=== PATIENT | male | born 1980 | race Caucasian/White ===

== ENCOUNTER 2025-03-27 15:27 | Emergency (ER) | payer BC, MEDICAID, SELFPAY ==
[2025-03-27 15:30] VITALS: BP 126/84; PULSE 62; TEMP 36.5; O2SAT 96
--- OUTSIDE RECORDS SUMMARY | 2025-03-27 15:32 | XMS_ITS | Clinical Summary ---
Author Organization [facility] Address [address] [place] [address] Phone Care Team Providers Care Physician Office Specialist Name Role Phone Unavailable Primary Care Provider Unavailabl e Allergies No known active allergies Medications acetaminophen (TYLENOL) 500 mg tablet Take 500 mg by mouth every 6 hours as needed. Active gabapentin (NEURONTIN) 600 mg tablet Take 1 Tablet by mouth 3 times daily. 12/23/2023 Active Active Problems Problem Noted Date Diagnosed Date Painful orthopaedic hardware 02/23/2024 Closed displaced comminuted fracture of shaft of left radius 08/24/2023 Closed fracture of distal end of left radius 06/2023 Encounters Date Type Department Care Team Description 03/05/2025 External Device Data STL ABSTRACTION Provider, Abstract from Last 3 Months Social History Tobacco Use Types Packs/Day Years Used Date Smoking Tobacco: Former Cigarettes Tobacco Cessation:Counseling Given: No Alcohol Use Standard Drinks/Week Comments Not Currently 0 (1 standard drink = 0.6 oz pur e alcohol) Feeling Safe Answer Date Recorded Are you in a relationship wi th someone who hurts you emotionally and/or physically? No 02/23/2024 Food Insecurity Answer Date Recorded Patient needs follow up regardin 11/02/2024 Transportation Needs Answer Date Record ed Patient needs follow up regardin 11/02/2024 Housing Stability Answer Date Recorded Social/Environmental Concerns No concerns Utility Needs Answer Date Recorded Patient needs follow up regardin 11/02/2024 Sex and Gender Information Value Date Recorded Sex Assigned at Not on file Legal Sex Male 1:53 PM JUNIOR DATA ANALYST Gender Identity Not on file Sexual Orientation Not on file Last Filed Vital Signs Vital Sign Reading Time Taken Comments Blood Pressure 124/76 07/03/2024 9:54 AM JUNIOR DATA ANALYST Pulse 76 07/03/2024 9:54 AM JUNIOR DATA ANALYST Temperature 36.4 C (97.5 F) 07/03/2024 9:54 AM JUNIOR DATA ANALYST Respiratory Rate 18 02/23/2024 5:00 PM CDT Oxygen Saturation 96% 07/03/2024 9:54 AM JUNIOR DATA ANALYST Inhaled Oxygen Concentration - - Weight 66.7 kg (147 lb) 07/03/2024 9:54 AM JUNIOR DATA ANALYST Height 165.1 cm (5' 5 ) 07/03/2024 9:54 AM JUNIOR DATA ANALYST Body Mass Index 24.46 07/03/2024 9:54 AM JUNIOR DATA ANALYST Plan of Treatment Health Maintenance Due Date Last Done Comments DTAP/TDAP/TD VACCINES (1 - Tdap) 10/13/1999 HEPATITIS B VACCINES (1 of 3 - 19+ 3-dose series) 10/02 HPV VACCINES (1 - 3-dose SCDM series) 10/13/2007 INFLUENZA VACCINE (#1) 2025 Medical Devices Explanted Type Area Patient Case Manager Device Identifier Shelf Expiration Date Model / Serial / Lot Plate Vdr Va-Lcp 2clmn 2.4mm 02.111.681s - [id number] Implanted:Qty: 1 on 04/14/2023 by Aaron Chandler MD at [facility] Explanted:Qty: 1 on 02/23/2024 by Aaron Chandler MD at [facility] Plate Left: Radius [employer]- DEPUY SYNTHES 02.111.681 S / / [id number] 0MAIN-01 Screw Cortex Slftp T8 2.7x20mm 202.880 - [id number] Explanted:Qty: 1 on 04/14/2023 by Aaron Chandler MD at [facility] Screw Left: Radius [employer]- DEPUY SYNTHES 202.880 / / [id number] 0MAIN-01 Screw Cortex Slftp T8 2.7x18mm 202.878 - [id number] Explanted:Qty: 1 on 04/14/2023 by Aaron Chandler MD at [facility] Screw Left: Radius [employer]- DE[employer] SYN[employer]ES 202.878 / / [id number] 0MAIN-01 Screw Cortex Slftp T8 2.7x18mm 202.878 - [id number] Explanted:Qty: 1 on 04/14/2023 by Aaron Chandler MD at [facility] Screw Left: Radius [employer]- DE[employer] SYNTHES 202.878 / / [id number] 0MAIN-01 Screw Cortex Slftp 2.7x16mm 202.816 - [id number] Implanted:Qty: 1 on 04/14/2023 by Aaron Chandler MD at [facility] Explanted:Qty: 1 on 02/23/2024 by Aaron Chandler MD at [facility] Screw Left: Radius [employer]- DE[employer] SYNTHES 202.816 / / [id number] 0MAIN-05 Screw Va Loc Strdr 2.4x20mm 02.210.120 - [id number] Implanted:Qty: 1 on 04/14/2023 by aAron Chandler MD at [facility] Explanted:Qty: 1 on 02/23/2024 by Aaron Chandler MD at [facility] Screw Left: Radius [employer]- DEPUY SYNTHES 02.210.120 / / [id number] 0MAIN-01 Screw Va Loc Strdr 2.4x20mm 02.210.120 - [id number] Implanted:Qty: 1 on 04/14/2023 by Aaron Chandler MD at [facility] Explanted:Qty: 1 on 02/23/2024 by Aaron Chandler MD at [facility] Screw Left: Radius [employer]- DEPUY SYNTHES 02.210.120 / / [id number] 0MAIN-01 Screw Va Loc Strdr 2.4x20mm 02.210.120 - [id number] Implanted:Qty: 1 on 04/14/2023 by Aaron Chandler MD at [facility] Explanted:Qty: 1 on 02/23/2024 by Aaron Chandler MD at [facility] Screw Left: Radius [employer]- DEPU[employer] SYN[employer]ES 02.210.120 / / [id number] 0MAIN-01 Screw Va Loc Strdr 2.4x20mm 210120 - [id number] Implanted:Qty: 1 on 04/14/2023 by Aaron Chandler MD at [facility] Explanted:Qty: 1 on 02/23/2024 by Aaron Chandler MD at [facility] Screw Left: Radius [employer]- DEPUY SYNTHES ..120 / / [id number] 0MAIN-01 Screw Cortex Slftp 2.7x16mm 202.816 - [id number] Implanted:Qty: 1 on 04/14/2023 by Aaron Chandler MD at [facility] Explanted:Qty: 1 on 02/23/2024 by Aaron Chandler MD at [facility] Screw Left: Radius [employer]- DEPUY SYNTHES 202.816 / / [id number] 0MAIN-05 Screw Cortex Slftp T8 2.4x18mm 201.768 - [id number] Implanted:Qty: 1 on 04/14/2023 by Aaron Chandler MD at [facility] Explanted:Qty: 1 on 02/23/2024 by Aaron Chandler MD at [facility] Screw Left: Radius [employer]- DEPUY SYNTHES 201.768 / / [id number] 0MAIN-01 Screw Cortex Slftp T8 2.4x18mm 201.768 - [id number] Implanted:Qty: 1 on 04/14/2023 by Aaron Chandler MD at [facility] Explanted:Qty: 1 on 02/23/2024 by Aaron Chandler MD at [facility] Screw Left: Radius [employer]- DEPU[employer] SYN[employer]ES 201.768 / / [id number] 0MAIN-01 Screw Cortex Slftp T8 2.7x16mm 202.876 - [id number] Implanted:Qty: 1 on 04/14/2023 by Aaron Chandler MD at [facility] Explanted:Qty: 1 on 02/23/2024 by Aaron Chandler MD at [facility] Screw Left: Radius [employer]- DE[employer] SYN[employer]ES 202.876 / / [id number] 0MAIN-01 Screw Cortex Slftp T8 2.7x16mm 202.876 - [id number] Implanted:Qty: 1 on 04/14/2023 by Aaron Chandler MD at [facility] Explanted:Qty: 1 on 02/23/2024 by Aaron Chandler MD at [facility] Screw Left: Radius [employer]- DEPUY SYNTHES 202.876 / / [id number] 0MAIN-01 Screw Cortex Slftp T8 2.7x16mm 202.876 - [id number] Implanted:Qty: 1 on 04/14/2023 by Aaron Chandler MD at [facility] Explanted:Qty: 1 on 02/23/2024 by Aaron Chandler MD at [facility] Screw Left: Radius [employer]- DEPUY SYNTHES 202.876 / / [id number] 0MAIN-01 Insurance RX SERVRX Commercial RX INFOCROSSING Medicaid [facility] MEDICAID RX SERVRX Commercial [employer]
[2025-03-27 15:51] LABS: Hematocrit 47.6 % (37-53); Hemoglobin 16.20 g/dL (11.27-16.99); Mean Corpuscular HGB Conc 34.0 g/dL (30-55); Mean Corpuscular Hemoglobin 30.3 pg (27-33); Mean Corpuscular Volume 89.1 fl (82-101); Nucleated Red Blood Cells % 0 %; Platelet Count 251 10^3/cmm (157-399); Red Blood Count 5.34 10^6/uL (3.85-5.65); White Blood Count 10.33 10^3/uL (3.29-11.43)
--- NOTE | 2025-03-27 16:05 | CTR_ITS ---
PROCEDURE INFORMATION: Exam: CT Abdomen And Pelvis With Contrast Exam date and time: 03/27/2025 4:20 PM Age: 44 years old Clinical indication: Abdominal pain; Localized; Left lower quadrant (llq); Prior surgery; Surgery date: 6+ months; Surgery type: Hernia; Additional info: Llq pain, blood in stool TECHNIQUE: Imaging protocol: Computed tomography of the abdomen and pelvis with contrast. Radiation optimization: All CT scans at this facility use at least one of these dose optimization techniques: automated exposure control; mA and/or kV adjustment per patient size (includes targeted exams where dose is matched to clinical indication); or iterative reconstruction. Contrast material: OMNIPAQUE 350; Contrast volume: 100 ml; Contrast route: INTRAVENOUS (IV); COMPARISON: No relevant prior studies available. RADIATION DOSE METRICS: Total DLP (mGy-cm): 401.33 FINDINGS: Lungs: Left lower lobe calcified granuloma. Mild bibasilar atelectasis. Liver: Normal. No mass. Gallbladder and biliary ducts: Normal. No calcified stones. No ductal dilation. Pancreas: Mild fatty atrophy of the pancreas, particularly along the head. No ductal dilatation. Spleen: Normal. No splenomegaly. Adrenal glands: Normal. No mass. Kidneys and ureters: 2.1 cm right renal cortical cyst. 1.3 cm right renal cortical cyst inferiorly. Multiple subcentimeter hypodensities in bilateral kidneys are too small to characterize but likely represent cysts. No hydronephrosis. Stomach and bowel: Circumferential wall thickening along the descending colon with mild pericolonic fat stranding.Sigmoid diverticulosis without evidence of acute diverticulitis. No evidence of bowel obstruction. Appendix: The appendix is unremarkable. Intraperitoneal space: Unremarkable. No free air. No significant fluid collection. Vasculature: Unremarkable. No abdominal aortic aneurysm. Lymph nodes: Unremarkable. No enlarged lymph nodes. Urinary bladder: Mild circumferential bladder wall thickening. Reproductive: Unremarkable as visualized. Bones/joints: Anterior compression deformity at T11 with about 60% height loss. Soft tissues: Unremarkable. CT/CT abdomen pelvis w con* [id number] IMPRESSION: 1. Findings suggestive of infectious/inflammatory colitis along the descending colon. 2. Sigmoid diverticulosis without diverticulitis. 3. Age-indeterminate anterior compression deformity at T11. Correlate with physical exam findings. 4. Mild bladder wall thickening is likely exaggerated by underdistention. Correlate with urinalysis if there is concern for acute cystitis. COMMENTS: Consistent with the [place] [employer]'s Incidental Findings Committee white paper (J Am Kady Radiol 2018): Any incidental renal lesion less than 1 cm or classified as too small to characterize, or any incidental cystic renal lesion characterized as simple-appearing, is likely benign. No follow-up imaging is recommended for these lesions per consensus recommendations based on imaging criteria.
[2025-03-27 16:12] LABS: INR 0.92 (0.8-1.2); Prothrombin Time 13.00 SECONDS (12.1-14.9)
--- NOTE | 2025-03-27 16:12 | W.ED.GIBLEED ---
HPI - GI Bleed General: Chief complaint: GI Bleed Stated complaint: Blood in stool Time Seen by Provider: 03/27/25 15:56 Source: patient Mode of arrival: ambulatory Limitations: no limitations History of Present Illness: Patient is a 44-year-old male who presents to the emergency department complaining of blood in his stool for the past 2 days. Also notes onset of left lower quadrant abdominal pain that began last night. States that he has noticed that there is blood mixed in with the stool and that he does not throw up toilet bowl. Denies any black or tarry stools. No rectal pain or itching. Denies history of hemorrhoids. He is not having any nausea or vomiting. Has not take anything for his pain. Does report a history of hernia repair, no other abdominal surgeries. Left lower quadrant pain is dull and achy, nonradiating. Denies history of diverticulosis or diverticulitis but states he has a family history of this. Otherwise he is nontoxic-appearing, his vitals are stable. MD complaint: blood streaked stool Onset (ago): day(s) Pain Consistency: constant Severity: mild Associated symptoms: Reports abdominal pain; Denies chills, fever(s), headache(s), nausea, rash or vomiting Related Data Home Medications ?Medication ?Instructions ?Recorded ?Confirmed gabapentin 300 mg capsule 300 mg PO BID 11/21/23 03/27/25 [id number] 250 2 tab PO Q6H PRN Pain 03/27/25 03/27/25 mg-250 mg-65 mg tablet (Excedrin Extra Strength) Previous Rx's ?Medication ?Instructions ?Recorded ciprofloxacin HCl 500 mg tablet 500 mg PO BID 7 days #14 tabs 03/27/25 (Cipro) metronidazole 500 mg tablet 500 mg PO BID 7 days #14 tabs 03/27/25 ondansetron 4 mg disintegrating 4 mg PO TID PRN nausea and 03/27/25 tablet vomiting #30 tabs Allergies Allergy/AdvReac Type Severity Reaction Status Date / Time No Known Allergies Allergy Verified 03/27/25 15:35 Review of Systems General: Reports: 10 or more systems reviewed and unremarkable except in HPI and below Const: Denies: fever(s), chills, change in appetite, change in weight or diaphoresis ENMT: Denies: throat pain or hoarseness Card: Denies: chest pain, palpitations or lightheadedness Resp: Denies: dyspnea, productive cough or wheezing GI: Reports: abdominal pain and hematochezia; Denies: nausea, vomiting, diarrhea or constipation : Denies: flank pain, difficulty urinating, dysuria, urinary frequency or urinary urgency Musc: Denies: neck pain or back pain Skin/Breast: Denies: rash or new lesions Neuro: Denies: headache(s) or dizziness PFSH ED PFSH: Surgical History History of right inguinal hernia repair Physical Exam Const: COMMON NORMALS: no acute distress, average body habitus, patient oriented x3, no limitations, healthy appearing, alert and well nourished GENERAL APPEARANCE: cooperative and comfortable ORIENTATION/CONSCIOUSNESS: Yes awake OTHER: nontoxic Eye: COMMON NORMALS: Equal, round and reactive pupils present, EOMs intact bilaterally, conjunctivae normal and normal visual murdock by confrontation CONJUNCTIVA: Yes conjunctivae normal PUPIL: Yes Equal, round and reactive pupils present Neck/C-Spine: COMMON NORMALS: full ROM, supple, no meningeal signs and no JVD Resp: COMMON NORMALS: normal respiratory effort, No retractions, No use of accessory muscles and clear to auscultation bilaterally AUSCULTATION: clear to auscultation bilaterally, no crackles, no rales, no rhonchi and no wheezes Cardio: COMMON NORMALS: no JVD, regular rate, regular rhythm, S1 normal heart sound present, S2 normal heart sound present, No gallops present (Cardio), No clicks present (Cardio), No murmurs present (Cardio), No rub (Cardio) and Peripheral pulses 2+ throughout RATE: regular rate RHYTHM: regular rhythm HEART SOUNDS: S1 normal heart sound present and S2 normal heart sound present PERIPHERAL PULSES: Peripheral pulses 2+ throughout GI: COMMON NORMALS: Soft to palpation, No hepatosplenomegaly present and no masses AUSCULTATION: Yes Hyperactive bowel sounds present PALPATION: Yes Soft to palpation, Yes Tenderness to palpation present (GI) Details: LLQ and LUQ, No Guarding due to palpation present (GI), No Rigid due to palpation and Yes No hepatosplenomegaly present RECTAL EXAM: Yes deferred Extremity: COMMON NORMALS: normal to inspection and full ROM Neuro: COMMON NORMALS: patient oriented x3, moves all extremities, no focal motor deficits and no sensory deficits noted SENSORIUM/ORIENTATION: Yes alert MENINGEAL SIGNS: Yes no meningeal signs Psych: COMMON NORMALS: mental status grossly normal, cooperative and speech normal SPEECH: Yes normal speech Skin: COMMON NORMALS: no rashes or lesions noted GENERAL SKIN EXAM: no rashes or lesions noted Course Vital Signs: Vital signs: Vital Signs Temperature 97.7 F 03/27/25 15:30 Pulse Rate 62 03/27/25 15:30 Blood Pressure 126/84 03/27/25 15:30 Pulse Oximetry 96 03/27/25 15:30 Oxygen Delivery Me thod Room Air 03/27/25 15:30 MDM - GI Bleed Medical Decision Making Patient is a 44-year-old male who presented with left lower quadrant pain and bloody stools for the past few days. Physical exam showing nontoxic male, there is reproducible tenderness to palpation to the left upper and left lower quadrant. His vitals have been stable. CBC and CMP unremarkable, urinalysis does not show any signs of infection. On CT scan there is evidence of colitis of the descending colon with sigmoid diverticulosis without obvious diverticulitis, with his bloody stools however we will treat with Cipro and Flagyl and have him follow-up with primary care for reevaluation and strict return precautions are given. Lab Data 03/27/25 15:45 03/27/25 15:45 Radiology Impressions Abdomen/Pelvis CT 03/27/25 16:05 IMPRESSION: 1. Findings suggestive of infectious/inflammatory colitis along the descending colon. 2. Sigmoid diverticulosis without diverticulitis. 3. Age-indeterminate anterior compression deformity at T11. Correlate with physical exam findings. 4. Mild bladder wall thickening is likely exaggerated by underdistention. Correlate with urinalysis if there is concern for acute cystitis. COMMENTS: Consistent with the [place] [employer]'s Incidental Findings Committee white paper (J Am Kady Radiol 2018): Any incidental renal lesion less than 1 cm or classified as too small to characterize, or any incidental cystic renal lesion characterized as simple-appearing, is likely benign. No follow-up imaging is recommended for these lesions per consensus recommendations based on imaging criteria. Laboratory Results WBC 10.33 10^3/uL (3.29-11.43) 03/27/25 15:45 RBC 5.34 10^6/uL (3.85-5.65) 03/27/25 15:45 Hgb 16.20 g/dL (11.27-16.99) 03/27/25 15:45 Hct 47.6 % (37-53) 03/27/25 15:45 MCV 89.1 fl (82-101) 03/27/25 15:45 MCH 30.3 pg (27-33) 03/27/25 15:45 MCHC 34.0 g/dL (30-55) 03/27/25 15:45 RDW 12.4 % (12.1-15.1) 03/27/25 15:45 Plt Count 251 10^3/cmm (157-399) 03/27/25 15:45 MPV 10.7 fL (7.4-10.4) H 03/27/25 15:45 Neut % (Auto) 63.1 % 03/27/25 15:45 Lymph % (Auto) 24.3 % 03/27/25 15:45 [place] % (Auto) 7.0 % 03/27/25 15:45 Eos % (Auto) 4.5 % 03/27/25 15:45 Baso % (Auto) 0.9 % 03/27/25 15:45 Neut # (Auto) 6.52 10^3/uL (1.8-7.7) 03/27/25 15:45 Lymph # (Auto) 2.5 10^3/uL (0.8-4.8) 03/27/25 15:45 [place] # (Auto) 0.7 10^3/uL (0.2-0.9) 03/27/25 15:45 Eos # (Auto) 0.5 10^3/uL (0.0-0.8) 03/27/25 15:45 Baso # (Auto) 0.1 10^3/uL (0.0-0.1) 03/27/25 15:45 Nucleated RBC % (auto) 0 % 03/27/25 15:45 Nucleated RBCs # 0.0 /100WBC 03/27/25 15:45 PT 13.00 SECONDS (12.1-14.9) 03/27/25 15:45 INR 0.92 (0.8-1.2) 03/27/25 15:45 APTT 24.5 SECONDS (23.9-36.7) 03/27/25 15:45 Sodium 137 mmol/L (136-145) 03/27/25 15:45 Potassium 3.9 mmol/L (3.5-5.1) 03/27/25 15:45 Chloride 103 mmol/L (98-107) 03/27/25 15:45 Carbon Dioxide 23 mmol/L (22-29) 03/27/25 15:45 Anion Gap 14.9 (5-19) 03/27/25 15:45 BUN 13 mg/dL (6-20) 03/27/25 15:45 Creatinine 0.9 mg/dL (0.7-1.2) 03/27/25 15:45 GFR Calculation 91.7 mL/min (90-130) 03/27/25 15:45 Glucose 96 mg/dL (65-115) 03/27/25 15:45 Calculated Osmolality 284 mOsm/kg (285-295) L 03/27/25 15:45 Calcium 9.5 mg/dL (8.5-10.5) 03/27/25 15:45 Total Bilirubin 0.6 mg/dL (0.15-1.2) 03/27/25 15:45 AST 19 U/L (0-40) 03/27/25 15:45 ALT 17 U/L (0-41) 03/27/25 15:45 Alkaline Phosphatase 105 U/L (40-130) 03/27/25 15:45 Total Protein 7.9 g/dL (6.6-8.7) 03/27/25 15:45 Albumin 4.8 g/dL (3.5-5.2) 03/27/25 15:45 Globulin 3.1 g/dL (1.3-4.6) 03/27/25 15:45 Urine Color Yellow (Yellow) 03/27/25 15:50 Urine Appearance Clear (CLEAR) 03/27/25 15:50 Urine pH 6.5 (5-7) 03/27/25 15:50 Ur Specific [place] 1.002 (1.005-1.030) L 03/27/25 15:50 Urine Protein Negative (Negative) 03/27/25 15:50 Urine Glucose (UA) Negative (Normal) 03/27/25 15:50 Urine Ketones Negative (Negative) 03/27/25 15:50 Urine Blood Negative (Negative) 03/27/25 15:50 Urine Nitrate Negative (Negative) 03/27/25 15:50 Urine Bilirubin Negative (Negative) 03/27/25 15:50 Urine Urobilinogen 0.2 mg/dL (Negative) 03/27/25 15:50 Ur Leukocyte Esterase Negative (Negative) 03/27/25 15:50 Urine RBC 0-2 /hpf (0-2) 03/27/25 15:50 Urine WBC 0-5 /hpf (0-5) 03/27/25 15:50 Ur Squamous Epith Cells 0-5 /hpf (0-5) 03/27/25 15:50 Amorphous Sediment Not Reportable 03/27/25 15:50 Urine Bacteria None seen /hpf (NONE) 03/27/25 15:50 Hyaline Casts 0-4 /lpf H 03/27/25 15:50 All radiology interpretation(s) finalized by discharge Discharge Plan Discharge Patient Disposition: Home Clinical Impression: Colitis Condition: Stable Prescriptions: New metronidazole 500 mg tablet 500 mg PO BID 7 Days Qty: 14 0RF ciprofloxacin HCl [Cipro] 500 mg tablet 500 mg PO BID 7 Days Qty: 14 0RF ondansetron 4 mg tablet,disintegrating 4 mg PO TID PRN (Reason: nausea and vomiting) Qty: 30 0RF No Action gabapentin 300 mg capsule 300 mg PO BID [id number] [Excedrin Extra Strength] 250-250-65 mg Tablet 2 tab PO Q6H PRN (Reason: Pain) Discharge Orders: Discharge ED (Routine); Ordered 03/27/25 Ordered By: Aaron Mclean Referrals: Leida Ag FNP [Primary Care Provider, Nurse Practitioner] Patient Instructions: Patient Portal & Raissa Instructions Activity Restrictions/Additional Instructions: Colitis Discharge Instructions Diagnosis: Colitis with underlying diverticulosis, no evidence of diverticulitis. Treated prophylactically due to significant colitis and bloody stools. Medications: - Ciprofloxacin 500 mg orally twice daily for 7 days - Metronidazole (Flagyl) 500 mg orally twice daily for 7 days - Take both medications with food to minimize gastrointestinal upset. - Complete the full course, even if symptoms improve. - Report any side effects such as rash, severe diarrhea, tendon pain (ciprofloxacin), or peripheral neuropathy (metronidazole). Dietary Recommendations: - Soft, low-residue diet is recommended during the acute phase to minimize colonic irritation. This includes: - Well-cooked vegetables (avoid raw/fibrous vegetables) - White rice, pasta, or potatoes - Lean proteins (chicken, fish, eggs) - Avoid nuts, seeds, popcorn, and foods with high insoluble fiber until symptoms resolve. - Advance diet gradually as symptoms improve, transitioning to a high-quality diet rich in fruits, vegetables, whole grains, and legumes for long-term prevention. - Maintain adequate hydration. Activity and Lifestyle: - Rest as needed during acute symptoms. - Avoid NSAIDs (except aspirin for cardiovascular indications), as these may increase risk of diverticular complications. - Smoking cessation and regular physical activity are recommended for long-term risk reduction. Follow-Up: - Schedule outpatient follow-up within 1 week or sooner if symptoms worsen. - Consider colonoscopy after resolution of symptoms if not performed in the past year, especially if there is concern for underlying malignancy or complicated disease. Strict Return Precautions: - Return to the emergency department or contact your provider immediately for any of the following: - Persistent or worsening abdominal pain - High fever (>101.5?F / >38.6?C) - Recurrent or worsening bloody stools - Signs of dehydration (dizziness, decreased urination) - Severe diarrhea (>6 stools/day or watery stools) - New onset of vomiting or inability to tolerate oral intake - Signs of systemic illness (confusion, rapid heartbeat, shortness of breath) - Development of jaundice, severe headache, or visual changes (possible medication side effects) - If you develop severe abdominal distension, rigidity, or signs of peritonitis, seek emergency care immediately. Additional Measures: - Monitor for medication side effects and report promptly. - Avoid alcohol while taking metronidazole. - Do not take any new medications or supplements without consulting your provider. Summary of Evidence: - Antibiotic therapy is indicated in higher-risk presentations, including significant colitis and bloody stools, per [place] [employer] and [place] [employer] guidelines. - Dietary modification and lifestyle changes are recommended for both acute management and long-term prevention. - Strict return precautions are essential to identify complications early. Print Language: Chinese Coding Level of Care Code ED Machine Set Up Operator for Feng Skinner
[2025-03-27 16:13] LABS: Partial Thromboplastin Time 24.5 SECONDS (23.9-36.7)
[2025-03-27] MEDS: ondansetron 2 mg/ML SDV 2 mL 4 MG IVP (16:16)
[2025-03-27 16:18] LABS: Alanine Aminotransferase 17 U/L (0-41); Albumin Level 4.8 g/dL (3.5-5.2); Alkaline Phosphatase 105 U/L (40-130); Anion Gap 14.9 (5-19); Aspartate Amino Transferase 19 U/L (0-40); Blood Urea Nitrogen 13 mg/dL (6-20); Calcium 9.5 mg/dL (8.5-10.5); Carbon Dioxide 23 mmol/L (22-29); Chloride 103 mmol/L (98-107); Creatinine Clr Calc Pharmacy 94.7170; Globulin 3.1 g/dL (1.3-4.6); Glucose 96 mg/dL (65-115); Osmolality Calculated 284 mOsm/kg (285-295); Potassium 3.9 mmol/L (3.5-5.1); Sodium 137 mmol/L (136-145); Total Protein 7.9 g/dL (6.6-8.7)
[2025-03-27] MEDS: iohexol 350 mg/mL 500 mL Btl (per mL) IV (16:24)
[2025-03-27 16:56] LABS: Glucose Urine UA Negative (Normal); Nitrate Urine Negative (Negative); Specific Gravity, Urine 1.002 (1.005-1.030)
[2025-03-27 17:01] LABS: Add Urine Microscopic? YES
== END 2025-03-27 17:50 | disposition home or self-care (01) ==
PROVIDERS: Emergency Medicine; Emergency Provider Physician Assistant; PCP Nurse Practitioner Family
DX: K52.9 Noninfective gastroenteritis and colitis, unspecified (principal); Z79.82 Long term (current) use of aspirin
CPT/HCPCS: 36415; 74177; 80053; 81001; 85025; 85610; 85730; 99285; J2405; J7040; J9999